=== PATIENT | female | born 1980 | race Caucasian/White ===

== ENCOUNTER → 2016-10-27 | Day surgery (SDC) | payer OTHER ==
--- NOTE | 2016-10-26 18:11 | History & Physical Pre-Op ---
General Information and HPI History of Present Illness: 36yo with 3 small vulvar skin lesions desires excision. Allergies/Medications Allergies: Coded Allergies: NO KNOWN ALLERGIES (10/11/16) Home Med list Ibuprofen (Motrin 600 MG Tab) 600 MG TAB 1 TAB PO Q8 PRN PAIN Past History Medical History RN ACLS/Reproductive: TUBAL LIGATION WRIST SURGERY Surgical History Pertinent Surgical History: , tubal ligation Review of Systems Review of Systems Constitutional: Reports: no symptoms. EENTM: Reports: no symptoms. Cardiovascular: Reports: no symptoms. Respiratory: Reports: no symptoms. GI: Reports: no symptoms. Genitourinary: Reports: no symptoms. Musculoskeletal: Reports: no symptoms. Skin: Reports: no symptoms. Neurological/Psychological: Reports: no symptoms. Hematologic/Endocrine: Reports: no symptoms. Immunologic/Allergic: Reports: no symptoms. All Other Systems: Reviewed and Negative Exam & Diagnostic Data Last 24 Hrs of Vital Signs/I&O vss Physical Exam: Chest CTA CV nl S1S2 Abd soft Pelvic; vulva 3 lesions, L,R,superior Assessment/Plan Assessment/Plan: vulvar lesions excisiion As Ranked By This Provider Problem List: 1. Other specified noninflammatory disorders of vulva and perineum
[~2016-10-27] VITALS: Ht 172.7 cm; Wt 71.2 kg
[~2016-10-27] MED LIST: CIPRO 500MG TA500 MG PO; MOTRIN 600 MG600 MG PO; ZOFRAN ODT4 MG PO
--- NOTE | 2016-10-27 12:47 | Operative Report ---
Operative/Inv Procedure Report Surgery Date: 10/27/16 Name of Procedure: Excision of vulvar lesions Pre-Operative Diagnosis: Bilateral vulvar lesions Post-Operative Diagnosis: Same Estimated Blood Loss: scant Surgeon/Jelly Maker: PACO REGAN MD Anesthesia: local monitored anesthesi Operative/Procedure Note Note: Patient was brought to the operating room placed on the OR table in the dorsal supine and was given adequate anesthesia. She was repositioned in a modified dorsal lithotomy. She was prepped and draped in usual sterile fashion 3 lesions were noted on the vulva 1 on the lower right lower left and superior in the mons. All 3 of these were injected with lidocaine without epinephrine. Using the needle tip cautery these were excised and sent to pathology. Each bed was closed in an interrupted suture of 4-0 Biosyn. Hemostasis was good the patient was awakened and sent to recovery in good condition. All needle, sponge, and instrument counts were correct at the end of the procedure 2.
== END ==
LOC: STS 10-13 03:06
DX: D28.0 Benign neoplasm of vulva (principal); Z87.891 Personal history of nicotine dependence
CPT/HCPCS: 81025; 88305; J2250

== ENCOUNTER → 2018-02-17 | Day surgery (SDC) | payer OTHER ==
[~2018-02-17] VITALS: Ht 152.4 cm; Wt 81.6 kg
[~2018-02-17] MED LIST changes: +ACETAMINOPHEN500 M4 PO; +BANOPHEN25 MG PO; +MYRBETRIQ25 M1 PO
--- NOTE | 2018-02-17 10:13 | Operative Report ---
Operative/Inv Procedure Report Surgery Date: 02/17/18 Name of Procedure: Urethral sling and cystoscopy Pre-Operative Diagnosis: Stress urinary incontinence Post-Operative Diagnosis: Same Estimated Blood Loss: scant (400 mL) Surgeon/Range Scientist: Gina Deal MD Anesthesia: local monitored anesthesi Implants: Vaginal mesh Complications: None Condition: Stable Operative Indication: Stress urinary incontinence Operative/Procedure Note Note: This is a 37-year-old female with bothersome stress urinary incontinence on a daily basis. She was given the options of a urethral sling versus conservative management with Keagle exercises. She is very interested in the sling and she was given the risks benefits and alternatives. All questions were answered. This was done in the office as well as the holding area. Consent was signed in the holding area. Patient was taken to the operating room placed on the operating table in supine position. Timeout was performed. IV antibiotics were infused. IV sedation was started and the patient was prepped and draped in the standard sterile fashion after being placed in the dorsal lithotomy position. Feliciano catheter was placed and 10 mL of water was placed in the balloon. Feliciano was clamped and placed on the patient's abdomen. Since retractor was placed. 1% lidocaine was infiltrated into the anterior vaginal wall beneath the urethra. An incision was made approximately 2 inches in length taking care not to injure the urethra. Vaginal flaps are created taking care not to injure the urethra on the patient's left and right side. The Coloplast sling kit was then opened and the trochars provided were used to place the sling first in the patient's left side followed by the right. The tightening Prolene suture was then used to place the sling in a tension-free manner with a DeBakey between the urethra and the sling. It was seen to be in a good position flat and orientation and tension-free. Area was copiously irrigated with bacitracin irrigation. The Prolene tightening suture was cut. The incision was closed with running locking every third suture with 3 -0 Vicryl. Sponge and needle count were correct at the end of the case. There is no mesh in the vaginal fornices. Cystoscopy was performed and the bladder was globally inspected. There was no mesh in the bladder or the urethra. The bladder anatomy was within normal limits. Bladder was emptied. Vaginal packing impregnated with bacitracin ointment was placed into the vaginal vault. Patient tolerated the procedure well. However she did have quite a bit of blood loss of 400 mL. She was transferred to the recovery room stable condition. Findings: No mesh in the bladder, urethra, or vaginal fornices. Discharge Disposition: Same Day Admissions
== END ==
LOC: STS 03:27
DX: N39.3 Stress incontinence (female) (male) (principal); N39.41 Urge incontinence; N32.81 Overactive bladder; Z87.891 Personal history of nicotine dependence; E66.9 Obesity, unspecified; Z68.35 Body mass index [BMI] 35.0-35.9, adult
CPT/HCPCS: C1771; J0131; J1885; J2250